=== PATIENT | female | born 1960 | race Caucasian/White ===

== ENCOUNTER → 2016-10-26 | Outpatient (CLI) | payer OTHER ==
[~2016-10-26] MED LIST: ACET-24 PO; ALBU18002 INH; ASPEC325 PO; ASPI81TA28 PO; ATOR-22 PO; CALC500C70 PO; CYM/30 PO; DULO60CA44 PO; FRRG PO; FRS/40 PO; MELO7.5T7 PO; METO25TA3 PO; MORP-157 PO; OMEP40CA PO; OXYC1TAB3 PO; PREG200C PO; RXC5 PO
--- NOTE | 2016-10-26 17:50 | DIAGNOSTIC IMAGING REPORT ---
CHEST 2 VIEWS ROUTINE CLINICAL HISTORY: PRE OP TESTING, WENT TO [facility], SEND TO [facility] COMPARISON STUDY: No previous studies for comparison. FINDINGS: The bones soft tissues and hemidiaphragms are normal. The cardiomediastinal silhouette is normal. The lungs are clear. The pulmonary vasculature is normal. IMPRESSION: Negative chest. Electronically signed by: Stuart Vera M.D. 10/26/2016 5:48 PM Dictated Date/Time: 10/26/2016 5:47 PM
== END | disposition home or self-care (01) ==
LOC: C.LAB 17:11
PROVIDERS: ATTEND Orthopaedic Surgery Sports Medicine
DX: Z01.812 Encounter for preprocedural laboratory examination (principal); Z01.810 Encounter for preprocedural cardiovascular examination

== ENCOUNTER 2017-01-10 06:30 | Inpatient (IN) | payer OTHER ==
[2016-10-18 14:17] VITALS: BMI 53.0
[2016-10-26 18:07] LABS: BASO % 0.6 %; BASO ABS # 0.04 K/uL (0-0.2); COMPLETE YES; EOS % 3.6 %; HEMATOCRIT 37.5 % (37-47); IG% 0.1 %; LYMPH % 39.1 %; LYMPH ABS # 2.68 K/uL (1.2-3.4); MEAN CELL VOLUME 89.7 fL (80-100); MEAN CORPUSCULAR HEMOGLOBIN 28.7 pg (25-34); MEAN PLATELET VOLUME 10.6 fL (7.4-10.4); MONO % 4.1 %; NEUT % 52.5 %; PLATELET COUNT 289 K/uL (130-400); RED BLOOD COUNT 4.18 M/uL (4.2-5.4); WHITE BLOOD COUNT 6.86 K/uL (4.8-10.8)
[2016-10-26 18:18] LABS: INR 0.9 (0.9-1.1); PROTHROMBIN TIME (PATIENT) 9.9 SECONDS (9.0-12.0)
[2016-10-26 18:35] LABS: BLOOD UREA NITROGEN 17 mg/dl (7-18); BUN/CREATININE RATIO 23.9 (10-20); CALCIUM 9.4 mg/dl (8.5-10.1); CARBON DIOXIDE 29 mmol/L (21-32); CHLORIDE 104 mmol/L (98-107); CREATININE 0.72 mg/dl (0.60-1.20); GLUCOSE 129 mg/dl (70-99); POTASSIUM 3.7 mmol/L (3.5-5.1); SODIUM 139 mmol/L (136-145)
[2016-10-26 18:36] LABS: C-REACTIVE PROTEIN 0.53 mg/dl (0-0.29)
--- NOTE | 2016-10-28 19:12 | HISTORY & PHYSICAL EXAMINATION ---
DATE OF ADMISSION: 11/04/2016 CHIEF COMPLAINT: Right knee pain. HISTORY OF PRESENT ILLNESS: A 56-year-old female, [place] who presents for surgical treatment of her right knee. She has got a long history of bilateral knee pain and discomfort. She has been through extensive conservative treatment. We had actually scheduled her for a right knee replacement in the past, but had to cancel due to some lower leg cellulitis. Since then, we treated that we have gone on to proceed with left knee replacement. She has done extremely well from that side. Very happy with the left knee. She has now become much more debilitated by her right knee. She has not had any cellulitis. She does have a chronic red hue to this leg which is present for years. She would now like to proceed with right knee replacement. She has limited walking to about a block at best. She uses a cane to get around. Of note, the patient does have a history of bilateral knee scopes in the past done by Dr. Pedro. She has difficulty with any weightbearing. She has nighttime pain. PAST MEDICAL HISTORY: Significant for: 1. Elevated cholesterol. 2. Asthma. 3. Superficial phlebitis/cellulitis. 4. Morbid obesity with a BMI of 53. 5. Back pain. PAST SURGICAL HISTORY: Include: 1. Herniorrhaphy. 2. Tonsillectomy. 3. x3. 4. Appendectomy. 5. Bilateral knee arthroscopy. 6. Left knee arthroplasty done in 05/06/2016. ALLERGIES: AMOXICILLIN, FLU SHOTS, EGGS. CURRENT MEDICINES: Include: 1. Lyrica 200 mg twice a day for fibromyalgia. 2. Atorvastatin 20 mg a day. 3. Duloxetine for fibromyalgia. 4. Metoprolol 25 mg a day. 5. Furosemide 40 mg a day. 6. Omeprazole 40 mg a day. SOCIAL HISTORY: This is a 56-year-old female patient from [place]. She works. Does not smoke. FAMILY HISTORY: Noncontributory. REVIEW OF SYSTEMS: Negative for diabetes, neurologic problems, vascular problems, bleeding disorders. Denies any chest pain, no shortness of breath. No history of DVT or PE. She does have the history of phlebitis and cellulitis. PHYSICAL EXAMINATION: GENERAL: Reveals a healthy pleasant, middle-aged female. Looks to be in reasonably good health. HEENT: Benign. NECK: Supple. No lymphadenopathy. LUNGS: Clear to auscultation. HEART: Regular rate and rhythm. ABDOMEN: Soft, nontender, nondistended. EXTREMITIES: Grossly neurovascularly intact except as follows: Examination of the right knee reveals the patient walks with an antalgic gait. She does well. She has got a large soft tissue envelope. She still does have a little red hue to the distal leg. No active cellulitis. Her range of motion is 0-90 at best. It is limited somewhat by soft tissues. She can do a straight leg raise. X-RAYS: X-rays of the right knee reviewed. It shows advanced right knee tricompartmental DJD. She has got complete loss of her medial joint space. She has tibial femoral subluxation. She does have some destruction of the medial tibial plateau. ASSESSMENT: A 56-year-old female status post a left knee replacement done in April with advanced right knee degenerative joint disease. She has multiple medical comorbidities and most significantly her obesity and the history of cellulitis. The cellulitis seems to be under control. She has got debilitating pain and would like to proceed with knee replacement. She is certainly at increased risk of infection and complications and she is aware of that and would like to proceed. PLAN: We are going to her to the operating room and do a right total knee replacement. The risks and benefits of this procedure were explained to the patient including but not limited to DVT, PE, , infection, neurological injury, vascular injury, bleeding problem, pain, limited range of motion, stiffness, failure to relieve symptoms, incomplete relief of symptoms, need for further surgery in the future, fracture, leg length inequality, nerve palsy, and most specifically infection. The patient understands and desires to proceed. Informed consent was obtained. She is fully aware of the increased risk of infection. Will likely use some antibiotics in her cement. We may need to use of stems and augments, depending on the quality of her bone. As far as discharge plans, she is planning to be discharged to home using [facility] home health program. I will see her back 2 weeks postop. RADHA
[2016-12-24 11:18] LABS: BASO % 0.4 %; BASO ABS # 0.02 K/uL (0-0.2); COMPLETE YES; EOS % 4.5 %; HEMATOCRIT 40.1 % (37-47); IG% 0.4 %; LYMPH % 34.1 %; LYMPH ABS # 1.84 K/uL (1.2-3.4); MEAN CELL VOLUME 91.1 fL (80-100); MEAN CORPUSCULAR HEMOGLOBIN 29.1 pg (25-34); MEAN CORPUSCULAR HGB CONC 31.9 g/dl (32-36); MEAN PLATELET VOLUME 10.6 fL (7.4-10.4); MONO % 6.1 %; NEUT % 54.5 %; PLATELET COUNT 271 K/uL (130-400); WHITE BLOOD COUNT 5.39 K/uL (4.8-10.8)
[2016-12-24 11:26] LABS: INR 0.9 (0.9-1.1); PROTHROMBIN TIME (PATIENT) 9.9 SECONDS (9.0-12.0)
[2016-12-24 11:44] LABS: BUN/CREATININE RATIO 24.2 (10-20); C-REACTIVE PROTEIN 0.64 mg/dl (0-0.29); CALCIUM 9.6 mg/dl (8.5-10.1); CREATININE 0.91 mg/dl (0.60-1.20); POTASSIUM 4.8 mmol/L (3.5-5.1)
[2017-01-02 15:24] VITALS: BMI 54.0
--- NOTE | 2017-01-05 12:37 | History and Physical ---
History & Physical Documentation Date Jan 05, 2017. Chief Complaint Right knee pain HPI (Knee Pain) Pain Location: Anterior knee, Posterior knee, Medial knee Duration: Years Adversely Affecting: ADL's, Work, Recreation Symptoms Include: + Catching, + Pain, + Giving way History of Injury/Trauma: Uncertain Non-Surgical Therapies: Behavior modification, Weight management, Exercise program Mechanical Assistive Devices: none Joint Injection: Steroid Prior Orthopedic Procedures: Arthroscopy Past Medical/Surgical History Elevated CHolesterol Asthma Superfiscial phlebitis Obesity - BMI=53 Pack Pain Herniorrhaphy Tonsillectomy Appendectomy Bilateral knee arthroscopy Left TKR - 05/06/2016 Additional History Hepatic Disease: No Endocrine Disorder: No Kidney Disease: No Hypertension: No Heart Disease: No Bleeding Tendencies: No Infectious Diseases: No Family History No Heart disease, No Pulmonary disease, No Anesthesia difficulties, No Bleeding tendencies Social History Smoking Status: Never Smoker Smokeless Tobacco Use: No Drug Use: none Occupational Status: employed Allergies Coded Allergies: Amoxicillin (Verified Allergy, Mild, RASH, 01/02/17) Egg (Verified Allergy, Mild, RASH, 01/02/17) Flu Virus Vaccine (Verified Allergy, Mild, RASH, 01/02/17) Meperidine (Verified Allergy, Mild, HALLUCINATION, 01/02/17) Hatch (Unverified Allergy, Unknown, CITRUS [id number]-[id number] MUCH-RASH, ) Tramadol (Verified Adverse Reaction, Mild, "Messes with my head", 01/02/17) Home Medications Scheduled Aspirin (Aspirin Ec), 81 MG PO HS Atorvastatin (Lipitor), 20 MG PO QAM Calcium/Vitamin D (Os-Atif 500 Plus D), 1 TAB PO QAM Duloxetine HCl (Cymbalta), 1 CAP PO QAM Duloxetine Hcl (Cymbalta), 60 MG PO QAM Meloxicam (Mobic), 7.5 MG PO QAM Metoprolol Succ (Toprol Xl) (Toprol-Xl), 25 MG PO QAM Omeprazole (Prilosec), 40 MG PO AM Pregabalin (Lyrica), 200 MG PO BID Scheduled PRN Albuterol Sulfate (Proair Respiclick), 2 PUFFS INH DIRECTED PRN for WHEEZING Furosemide (Lasix), 40 MG PO QAM PRN for PRN Oxycodone Ir (Roxicodone Ir), 5 MG PO Q4H PRN for Severe Pain Review of Systems Constitutional: No fever, No chills, No sweats, No weight loss, No weakness, No fatigue, No problem reported Respiratory: No cough, No sputum, No wheezing, No shortness of breath, No dyspnea on exertion, No dyspnea at rest, No hemoptysis, No problem reported Cardiovascular: No chest pain, No orthopnea, No PND, No edema, No claudication , No palpitations, No problem reported Abdomen: No pain, No nausea, No vomiting, No diarrhea, No constipation, No GI bleeding, No problem reported Musculoskeletal: + joint pain, + muscle pain Genitourinary - Female: No dysuria, No urinary frequency, No urinary urgency, No urinary incontinence, No urinary retention, No hematuria, No dysmenorrhea, No menorrhagia, No metrorrhagia, No rash, No vaginal bleeding, No vaginal discharge, No vaginal itching, No vulvodynia, No , No problem reported Neurologic: No memory loss, No paralysis, No weakness, No numbness/tingling, No vertigo, No balance problems, No problem reported Physical Exam Skin: warm/dry Eyes: normal inspection ENT: normal ENT inspection Head: normocephalic Neck: supple, no adenopathy Respiratory/Chest: lungs clear Cardiovascular: regular rate, rhythm Abdomen / GI: non tender Back: normal inspection Neurovascular: Warm, Dry, Normal perfusion, Normal pedal pulses, Normal sensation, Normal motor strength Neurologic/Psych: no motor/sensory deficits Physical Exam (Knee) Inspection: + Effusion Gait: + Limp, + Antalgic Range of Motion: With crepitation (ROM=0-90 degrees) Alignment: + Genu varum Stability: No Camron, No Anterior drawer, No Varus laxity, No Rotational laxity, No Posterior drawer, No Valgus laxity, No pertinent finding Tenderness: Medial joint line, Suprapatellar, Popliteal space Radiology Plain Films: Osteophytes, Subchondral sclerosis, Subluxation Diagnosis & Plan Diagnosis & Plan (1) Right Knee DJD Plan: TKA Right TKR.
[~2017-01-10] VITALS: Ht 154.9 cm; Wt 129.6 kg
[2017-01-10] VITALS (9 sets, daily range): BP systolic 98–156; BP diastolic 61–93; PULSE 95–106; TEMP 36.6–37.1; O2SAT 92–99; Ht 154.9 cm; Wt 129.6 kg
[~2017-01-10 06:30] MED LIST changes: -ACET-24 PO; +ACETAMINOPHEN 500 MG TAB PO SCH; -ASPEC325 PO; +BUPIVACAINE LIPOSOME 266 MG, BUPIVACAINE/EPINEPHRINE INJ 50 ML, SODIUM CHLORIDE 0.9% PF... INFIL SCH; +CEFAZOLIN 3000 MG/65 ML D5W IV SCH; +CHECK SCOPOLAMINE PATCH PLACEMENT SCH; +FAMOTIDINE 20 MG TAB PO SCH; -FRRG PO; +GABAPENTIN 300 MG CAP PO SCH; +LACTATED RINGER'S 1000ML 1,000 ML IV SCH; +LACTATED RINGER'S 1000ML 500 ML IV ONE; +LACTATED RINGER'S 1000ML IV SCH; +LACTATED RINGER'S 500 ML IV SCH; +METOCLOPRAMIDE HCL 10 MG TAB PO SCH; -MORP-157 PO; -RXC5 PO; +SCOPOLAMINE 1.5 MG TDSY TD SCH; +TRANEXAMIC ACID INJ 1,000 MG in SODIUM CHLORIDE 0.9% 100ML 100 ML IV SCH
[2017-01-10] MEDS ORDERED: BUPIVACAINE 0.5 % 5 MG/1 ML PF 10ML VIAL ONE (06:38)
[2017-01-10] MEDS ORDERED: BUPIVACAINE/EPINEPHRINE 0.25% 10 ML VIAL ONE ×3 (06:39→08:52)
[2017-01-10] MEDS ORDERED: DEXAMETHASONE SOD INJ 4 MG/ML VIAL ONE (06:40)
--- NOTE | 2017-01-10 06:49 | History & Physical Bridge Note ---
H&P Re-Evaluation Bridge Note: I have examined the patient, reviewed the History & Physical and in the interval since the performance of the History & Physical I have noted the following changes of clinical significance: No changes noted
[2017-01-10] MEDS ORDERED: ONDANSETRON INJ 2 MG/ML 2 ML VIAL ONE (07:16)
[2017-01-10] MEDS ORDERED: PROPOFOL IV EMULSION 10 MG/ML 20 ML VIAL IV ONE (07:16)
[2017-01-10] MEDS ORDERED: FENTANYL CITRATE INJ 50 MCG/1 ML 2 ML VIAL ONE (07:16)
[2017-01-10] MEDS ORDERED: MIDAZOLAM HCL 1 MG/ML 2ML VIAL ONE ×2 (07:16→09:00)
[2017-01-10] MEDS ORDERED: BUPIVACAINE LIPOSOME 1/3% 266 MG/20 ML VIAL INFIL ONE (08:34)
[2017-01-10] MEDS ORDERED: SODIUM CHLORIDE 0.9% PF 50 ML VIAL ONE (08:34)
[2017-01-10] MEDS ORDERED: BACITRACIN 50000 UNIT VIAL ONE (08:34)
[2017-01-10] MEDS ORDERED: VANCOMYCIN HCL 1000MG/20ML VIAL ONE (08:35)
[2017-01-10] MEDS ORDERED: PROMETHAZINE HCL INJ 6.25 MG in SODIUM CHLORIDE 0.9% 50ML 50 ML IV PRN (09:00)
[2017-01-10] MEDS ORDERED: ONDANSETRON INJ 2 MG/ML 2 ML VIAL IV PRN ×2 (09:00→11:00)
[2017-01-10] MEDS ORDERED: EpHEDrine SULFATE INJ 50 MG/ML AMP IV PRN (09:00)
[2017-01-10] MEDS ORDERED: DiphenhydrAMINE HCL 50 MG/ML VIAL ONE (09:00)
[2017-01-10] MEDS ORDERED: ATROPINE SULFATE 0.1 MG/ML 5ML SYR IV PRN (09:00)
[2017-01-10] MEDS ORDERED: KETAMINE HCL INJ 50 MG/ML 10 ML VIAL ONE (09:06)
[2017-01-10] MEDS ORDERED: WATER, STERILE FOR INJ 10 ML VIAL ONE (09:06)
[2017-01-10] MEDS ORDERED: METOPROLOL TARTRATE 1 MG/ML VIAL ONE (09:30)
--- NOTE | 2017-01-10 10:56 | [facility] Post Operative Brief Note ---
Immediate Operative Summary Operative Date Jan 10, 2017. Pre-Operative Diagnosis Right knee degenerative joint disease Post-Operative Diagnosis Same as preop Procedure(s) Performed Right total knee arthroplasty Surgeon Dr. Salgado Powder Cutting Operator Surgeon(s) Lillie Santana PA-C Estimated Blood Loss 50 cc Findings Right Knee DJD Fluids (cc crystalloids) 1300 cc Specimens A: right knee bone and tissue Drains None Anesthesia Spinal Complication(s) None Disposition Recovery Room / PACU
[2017-01-10] MEDS ORDERED: METOCLOPRAMIDE HCL INJ 5 MG/ML 2 ML VIAL IV PRN (11:00)
[2017-01-10] MEDS ORDERED: BISACODYL 10 MG SUPP PR PRN (11:00)
[2017-01-10] MEDS ORDERED: NON-FORMULARY MEDICATION (Omeprazole (Prilosec) 40 MG) PO SCH (11:00)
[2017-01-10] MEDS ORDERED: FUROSEMIDE 40 MG TAB PO PRN (11:00)
[2017-01-10] MEDS ORDERED: MoRPHine SULFATE 2 MG/ML CARP IV PRN (11:00)
[2017-01-10] MEDS ORDERED: ZOLPIDEM TARTRATE 5 MG TAB PO PRN (11:00)
[2017-01-10] MEDS ORDERED: ALUMINUM/MAGNESIUM/SIMETH (MAALOX MAX) 30 ML UDC PO PRN (11:00)
[2017-01-10] MEDS ORDERED: SILVER SULFADIAZINE 1% CR 50 GM JAR EXT PRN (11:00)
[2017-01-10] MEDS ORDERED: NON-FORMULARY MEDICATION (Albuterol Sulfate (Proair Respiclick) 2 PUFFS) INH PRN (11:00)
[2017-01-10] MEDS ORDERED: MAGNESIUM HYDROXIDE SUSP 30 ML UDC PO PRN (11:00)
[2017-01-10] MEDS ORDERED: DiphenhydrAMINE HCL 50 MG/ML VIAL IV PRN (11:00)
[2017-01-10] MEDS: FENTANYL CITRATE INJ 50 MCG/1 ML 2 ML VIAL IV PRN ×2 (11:40→11:46)
--- NOTE | 2017-01-10 11:55 | DIAGNOSTIC IMAGING REPORT ---
RIGHT KNEE 1 OR 2 VIEWS ROUTINE CLINICAL HISTORY: Postoperative evaluation. COMPARISON: Knee radiograph January 18, 2016. FINDINGS: Alignment of the total right knee arthroplasty is anatomic. There is no fracture or unexpected radiopaque foreign body. Skin dwight are present. IMPRESSION: Expected findings following total right knee arthroplasty. Electronically signed by: Osorio Tobar M.D. 01/10/2017 11:54 AM Dictated Date/Time: 01/10/2017 11:44 AM
--- NOTE | 2017-01-10 12:56 | Anesthesiology Progress Note ---
Anesthesia Post Op Note Date & Time Jan 10, 2017 at 12:56 Vital Signs Pain Intensity: 0.0 Vital Signs Past 12 Hours Date Time Temp Pulse Resp B/P (MAP) Pulse Ox O2 Delivery O2 Flow Rate FiO2 01/10/17 12:32 Nasal Cannula 2.0 01/10/17 12:15 37.1 99 18 110/72 (85) 99 Nasal Cannula 2.0 01/10/17 12:00 36.5 96 14 115/79 95 Nasal Cannula 2 01/10/17 11:36 99/53 01/10/17 11:35 93 14 96 01/10/17 11:35 95 14 01/10/17 11:31 100/55 01/10/17 11:30 92 15 96 01/10/17 11:30 92 15 01/10/17 11:26 102/55 01/10/17 11:25 91 14 01/10/17 11:25 92 14 97 01/10/17 11:21 104/55 01/10/17 11:20 92 13 97 01/10/17 11:20 92 13 01/10/17 11:19 93 16 01/10/17 11:19 93 16 98 01/10/17 11:16 94/52 01/10/17 11:14 97 16 98 01/10/17 11:14 98 16 01/10/17 11:12 87/48 01/10/17 11:09 94 14 98 01/10/17 11:09 94 14 01/10/17 11:05 111/56 01/10/17 11:04 36.1 96 14 111/56 100 Mask 10 01/10/17 11:04 98 14 01/10/17 11:04 97 14 100 01/10/17 06:51 36.7 96 20 156/93 96 Room Air Notes Mental Status: alert / awake / arousable, participated in evaluation Pt Amnestic to Procedure: Yes Nausea / Vomiting: adequately controlled Pain: adequately controlled Airway Patency, RR, SpO2: stable & adequate BP & HR: stable & adequate Hydration State: stable & adequate Neuraxial Anesthesia: was administered, sensory block is resolving Anesthetic Complications: no major complications apparent
--- NOTE | 2017-01-10 12:57 | OPERATIVE REPORT ---
DATE OF OPERATION: 01/10/2017 PREOPERATIVE DIAGNOSIS: Right knee degenerative joint disease. POSTOPERATIVE DIAGNOSIS: Same. PROCEDURE PERFORMED: Right cemented posterior stabilized total knee arthroplasty. SURGEON: Steve Salgado M.D. SEASONAL SALES ASSOCIATE: Lalo Santana PA-C. COMPLICATIONS: None. ESTIMATED BLOOD LOSS: 50 mL. FLUID REPLACEMENT: 1300 mL crystalloid fluid replacement. ANESTHESIA: Spinal with adductor canal block. DRAINS: None. SPECIMENS: Right knee sent for pathology. TOURNIQUET TIME: 71 minutes at 350 mmHg. OPERATIVE INDICATIONS: The patient is a 56-year-old female who has had a long history of bilateral knee pain and discomfort. She has been through extensive conservative treatment over the past several years. He has got to the point where she has had difficulty getting around. She had a left knee replaced 8 months ago and has done remarkably well from that. She elected to proceed with right total knee arthroplasty. OPERATIVE FINDINGS: Operative findings revealed advanced right knee DJD. She had extensive grade 4 changes in all 3 compartments with complete cartilage loss, eburnation, and multiple osteophytes. She had a very large soft tissue envelope with a BMI of 53. This made the surgery significantly more difficult. OPERATIVE IMPLANTS: Operative implants consisted of: 1. Biomet Vanguard size 62.5 right posterior stabilized femoral component. 2. Biomet size 67 tibial tray. 3. A 10 mm posterior stabilized polyethylene insert. 4. A 28 x 8 all poly patella. OPERATIVE PROCEDURE: The patient taken to the operating room, identified and placed on operative table in supine position. All contact areas were appropriately padded. IV antibiotics were provided by anesthesia team. A spinal anesthetic and adductor canal block had been provided in the holding area. Painter catheter was placed in sterile fashion. Right thigh tourniquet was then placed and the right lower extremity was then prepped and draped in the usual sterile fashion. The right leg was elevated and exsanguinated with Esmarch and tourniquet was placed at 350 mmHg. An anterior approach to the right knee was then performed through a longitudinal incision centered over the patella. Sharp dissection was carried out through the subcutaneous tissues down to the level of the extensor mechanism. A medial parapatellar arthrotomy incision was made. Some subperiosteal dissection was carried out medially. The fat pad was resected from beneath the patellar tendon. Lateral patellofemoral ligament was released. The patella was subluxated laterally due to her large size and the knee was flexed. The osteophytes were taken off the distal femur. The ACL and PCL were then released from the distal femur and the tibia subluxated anteriorly. Due to her large size and varus deformity, I elected to use the IM cutting guide for the tibia. The tibial eminence was excised. The IM guide was then placed down the canal and the tibial cutting guide was attached to the IM guide and adjusted to take 2 mm off the most deficient aspect of the medial tibial plateau. The tibial cut was made. Some osteophytes were removed medially and posteromedially. The tibia was sized to a size 67. Attention was then drawn to the femur. The distal femur was entered with a sharp drill bit. Intramedullary canal was suctioned. A right 5 degree valgus cutting guide was placed. Distal femoral cutting block was pinned in place. Distal femoral cut was made to take an additional 3 mm of bone off the distal femur. The femur was then sized to a size 62.5. The AP cutting block was pinned parallel to the epicondylar axis, which was 4 degrees of external rotation. The anterior cut, anterior chamfer, posterior cut, posterior chamfer cuts were made. Box cutting guide was placed and adjusted slightly lateral and the box cut was made. The knee was flexed. The remnants of the medial and lateral menisci were excised. The osteophytes were taken off the posterior aspect of the femur. Trial femoral component was placed. Tibial tray was pinned in maximum external rotation and the drill and stem punch were used to create defect in proximal tibia for the tibial tray. The knee was then trialed and the 10 mm insert fit most appropriately. Attention was then drawn to the patella. The patella was cleaned of all soft tissues. Patella thickness measured 18 mm, cut down to 12. It was sized to a size 28 patella. Lug holes were drilled for the 28 patella. Lateral osteophyte was removed. Patella button was placed. Knee was taken through range of motion and the patella tracked nicely with no thumbs test. Attention was then drawn toward placement of permanent components. All trial components were removed. A bone plug was placed in the distal femur to limit blood loss. We also placed some bone down through the tibial canal to prevent cement extravasation down the tibia. A double batch of Palacos G cement was mixed with an additional gram of vancomycin. A 62.5 posterior stabilized femoral component, 67 tibial tray, 10 mm posterior stabilized polyethylene insert, 28 x 8 all poly patella were then cemented in place. Knee was brought out into full extension until cement hardened. A final cement check was then performed. Pericapsular tissues were injected with 100 mL of a combination of 20 mL of Exparel, 30 mL of normal saline, 50 mL of 0.25% Marcaine with epinephrine. The patient did receive 1 gram of tranexamic acid. The tourniquet was then let down for final tourniquet time 71 minutes. Hemostasis was assured with use of electrocautery. The wound was once again irrigated. The extensor mechanism was then closed with a combination of #1 PDS suture and #1 Vicryl suture in a [id number] fashion. Extensor mechanism was checked and found to be intact. The subcutaneous tissues were then closed with 2-0 Dexon suture in a buried interrupted fashion. Skin was closed skin dwight. Leg ligament cleaned and dried and a sterile dressing of Xeroform, 4 x 4's, sterile cast padding and Aldo bandage were applied. The patient then transferred to the recovery room in stable condition. The patient tolerated the procedure with no complications. All needle and sponge counts were correct at the end of the operation. I attest to the content of the Intraoperative Record and any orders documented therein. Any exception s are noted below.
[2017-01-10] MEDS: D5W AND 1/2NSS + 20MEQ KCL 1,000 ML IV SCH ×2 (13:38→20:39)
[2017-01-10] MEDS: KETOROLAC TROMETHAMINE 30 MG/ML VIAL IV. SCH ×2 (13:39→20:41)
[2017-01-10] MEDS: OXYCODONE HCL IR 5 MG TAB (IMMEDIATE RELEASE) PO PRN ×2 (13:39→18:33)
--- NOTE | 2017-01-10 14:01 | PROGRESS NOTE ---
DATE: 01/10/2017 SUBJECTIVE: A 56-year-old female postop from a right knee replacement. She is doing well. Minimal pain. No chest pain or shortness of breath. Not feeling dizzy or lightheaded. OBJECTIVE: VITAL SIGNS: Temperature 37.1. Vital signs stable. GENERAL: Physical examination reveals a healthy, pleasant middle-aged female. She is sitting up in her bed and talking to her family. Looks pretty comfortable. LUNGS: Clear to auscultation. HEART: Regular rate and rhythm. ABDOMEN: Soft, nontender, and nondistended. EXTREMITIES: Grossly neurovascularly intact except as follows: Examination of the right leg reveals the leg to be well aligned. Dressing is clean, dry and intact. She can dorsiflex and plantarflex her foot appropriately. She is neurologically intact. X-RAYS: X-rays of the right knee from the recovery room reviewed. It shows a right cemented posterior stabilized total knee arthroplasty. Components looked to be in good position. No signs of problems. ASSESSMENT: A 56-year-old female postop from a right knee replacement, doing well. Pain is controlled. She is neurologically intact. PLAN: 1. DVT prophylaxis including thigh-high TEDs, SCDs, and aspirin twice a day. 2. PT/OT. Weightbearing as tolerated. Right total knee protocol. 3. Pain control. Doing well with current pain regimen. 4. IV antibiotics x24 hours. 5. Disposition: Plan to discharge to home with some home health once adequately recovered.
[2017-01-10] MEDS: CHECK SCOPOLAMINE PATCH PLACEMENT SCH ×2 (16:00→23:42)
[2017-01-10] MEDS ORDERED: TRANEXAMIC ACID INJ 1,000 MG in SODIUM CHLORIDE 0.9% 100ML 100 ML IV SCH (17:00)
[2017-01-10] MEDS: FERROUS GLUCONATE 324 MG TAB PO SCH (18:30)
[2017-01-10] MEDS: CEFAZOLIN IV 2,000 MG in DEXTROSE 5% 50ML 50 ML IV SCH (18:34)
[2017-01-10] MEDS: ASPIRIN 325 MG ECTAB PO SCH (20:39)
[2017-01-10] MEDS: TAPENTADOL ER 50 MG TABCR PO SCH (20:40)
[2017-01-10] MEDS: PREGABALIN 100 MG CAP PO SCH (20:40)
[2017-01-10] MEDS: DOCUSATE SODIUM 100 MG CAP PO SCH (20:40)
[2017-01-10] MEDS: SENNA 8.6 MG TAB PO SCH (20:40)
[2017-01-10] MEDS: ACETAMINOPHEN 500 MG TAB PO SCH (22:06)
[2017-01-11 03:00] VITALS: BP 119/71; PULSE 87; TEMP 37; O2SAT 95
[2017-01-11] MEDS: KETOROLAC TROMETHAMINE 30 MG/ML VIAL IV. SCH ×4 (03:01→20:27)
[2017-01-11] MEDS: CEFAZOLIN IV 2,000 MG in DEXTROSE 5% 50ML 50 ML IV SCH (03:01)
[2017-01-11] MEDS: D5W AND 1/2NSS + 20MEQ KCL 1,000 ML IV SCH ×2 (03:02→10:18)
[2017-01-11] MEDS: ACETAMINOPHEN 500 MG TAB PO SCH ×3 (05:52→21:39)
[2017-01-11] MEDS: OXYCODONE HCL IR 5 MG TAB (IMMEDIATE RELEASE) PO PRN ×4 (05:53→21:39)
[2017-01-11 06:17] LABS: HEMATOCRIT 34.7 % (37-47); MEAN CELL VOLUME 92.5 fL (80-100); MEAN CORPUSCULAR HEMOGLOBIN 30.4 pg (25-34); MEAN CORPUSCULAR HGB CONC 32.9 g/dl (32-36); MEAN PLATELET VOLUME 9.9 fL (7.4-10.4); PLATELET COUNT 260 K/uL (130-400); RED BLOOD COUNT 3.75 M/uL (4.2-5.4)
[2017-01-11 06:49] LABS: BUN/CREATININE RATIO 17.5 (10-20); CALCIUM 8.5 mg/dl (8.5-10.1); CREATININE 0.77 mg/dl (0.60-1.20); POTASSIUM 4.3 mmol/L (3.5-5.1)
[2017-01-11] MEDS: CHECK SCOPOLAMINE PATCH PLACEMENT SCH ×2 (07:40→16:00)
[2017-01-11 07:55] VITALS: BP 134/82; PULSE 80; TEMP 36.8; O2SAT 97
[2017-01-11 07:58] VITALS: O2SAT 97
[2017-01-11] MEDS: CALCIUM 600MG + VIT D 400 IU TAB PO SCH (08:45)
[2017-01-11] MEDS: FERROUS GLUCONATE 324 MG TAB PO SCH ×3 (08:45→17:47)
[2017-01-11] MEDS: DOCUSATE SODIUM 100 MG CAP PO SCH ×2 (08:45→20:48)
[2017-01-11] MEDS: DULOXETINE (CYMBALTA) 30 MG CAP PO SCH (08:46)
[2017-01-11] MEDS: DULOXETINE HCL 60 MG CAP PO SCH (08:46)
[2017-01-11] MEDS: ATORVASTATIN 20 MG TAB PO SCH (08:46)
[2017-01-11] MEDS: ASPIRIN 325 MG ECTAB PO SCH ×2 (08:46→20:48)
[2017-01-11] MEDS: MULTIVITAMIN TAB PO SCH (08:47)
[2017-01-11] MEDS: PANTOprazole SOD 40 MG TAB PO SCH (08:47)
[2017-01-11] MEDS: METOPROLOL SUCC 25MG EXT REL TAB PO SCH (08:48)
[2017-01-11] MEDS: PREGABALIN 100 MG CAP PO SCH ×2 (08:50→20:47)
[2017-01-11] MEDS: TAPENTADOL ER 50 MG TABCR PO SCH ×2 (08:50→20:47)
--- NOTE | 2017-01-11 10:19 | Anesthesiology Progress Note ---
Anesthesia Post Op Note Date & Time Jan 11, 2017 at 10:19 Vital Signs Vital Signs Past 12 Hours Date Time Temp Pulse Resp B/P (MAP) Pulse Ox O2 Delivery O2 Flow Rate FiO2 01/11/17 07:58 97 Room Air 01/11/17 07:55 36.8 80 16 134/82 (99) 97 Room Air 01/11/17 07:45 Room Air 01/11/17 03:00 37.0 87 16 119/71 (87) 95 Room Air 01/10/17 23:40 Room Air 01/10/17 22:56 36.9 104 18 107/68 (81) 95 Room Air Notes Mental Status: alert / awake / arousable, participated in evaluation Pt Amnestic to Procedure: Yes Nausea / Vomiting: adequately controlled Pain: adequately controlled Airway Patency, RR, SpO2: stable & adequate BP & HR: stable & adequate Hydration State: stable & adequate Neuraxial Anesthesia: sensory block resolved Anesthetic Complications: no major complications apparent
[2017-01-11 12:00] VITALS: BP 113/78; PULSE 70; TEMP 36.9; O2SAT 97
--- NOTE | 2017-01-11 12:22 | Orthopedic Progress Note ---
Orthopedic Progress Note Date of Service Jan 11, 2017. Subjective Post OP Day: 1 Additional Notes: DOING WELL. PAIN CONTROLLED. NO OTHER COMPLAINTS Objective N/V intact, dressing C/D/I, toes mobile Date Time Temp Pulse Resp B/P (MAP) Pulse Ox O2 Delivery O2 Flow Rate FiO2 01/11/17 07:58 97 Room Air 01/11/17 07:55 36.8 80 16 134/82 (99) 97 Room Air 01/11/17 07:45 Room Air 01/11/17 03:00 37.0 87 16 119/71 (87) 95 Room Air 01/10/17 23:40 Room Air 01/10/17 22:56 36.9 104 18 107/68 (81) 95 Room Air 01/10/17 18:55 37.1 105 16 117/71 (86) 95 Nasal Cannula 2.0 01/10/17 16:40 92 Nasal Cannula 2.0 01/10/17 15:15 106 16 118/71 (87) 01/10/17 14:15 95 18 116/69 (85) 92 01/10/17 13:15 96 16 109/67 (81) 93 01/10/17 12:45 36.6 98 16 98/61 (73) 96 01/10/17 12:32 Nasal Cannula 2.0 Laboratory Results 24 Hours: Test 01/11/17 06:04 Hematocrit 34.7 % Hemoglobin 11.4 g/dL Assessment & Plan Assessment: POD #1 R TKA Discharge Planning Discharge Planning: home (PLAN FOR LIKELY DISCHARGE HOME TOMORROW AND OUTPATIENT PT ) Pain Management: other (PAIN CONTROLLED ) DVT Prophylaxis: TEDs, SCDs, ASA Therapy: Physical Therapy
[2017-01-11] MEDS ORDERED: ALBUTEROL HFA INHALER 18 GM INH PRN (15:30)
[2017-01-11] MEDS ORDERED: NURSING VERBAL MED ORDER ONE (15:30)
[2017-01-11 15:37] VITALS: BP 119/76; PULSE 79; TEMP 36.7; O2SAT 99
[2017-01-11] MEDS ORDERED: ASPEC325 PO (20:37)
[2017-01-11] MEDS ORDERED: ACET-24 PO (20:37)
[2017-01-11] MEDS ORDERED: MORP-157 PO (20:37)
[2017-01-11] MEDS ORDERED: RXC5 PO (20:37)
--- NOTE | 2017-01-11 20:40 | Discharge Instructions ---
Discharge Instructions Date of Service Jan 11, 2017. Admission Reason for Admission: Right Knee Degenerative Joint Disease Discharge Discharge Diagnosis / Problem: Right Knee Replacement Discharge Goals Goal(s): Decrease discomfort, Improve function, Increase independence, Improve disease control, Therapeutic intervention Activity Recommendations Activity Limitations: per Instructions/Follow-up section . Instructions / Follow-Up Instructions / Follow-Up ACTIVITY RECOMMENDATIONS: Physical Therapy: * You will go to physical therapy three times each week for four to six weeks after your surgery in order to regain your knee range of motion and to retrain your knee to work properly. * It is just as important to make sure you are getting your knee perfectly straight as it is to regain your knee bend. * Taking a pain pill an hour before therapy can help you have a more productive and comfortable therapy session. Home Exercise: * You were shown a series of exercises (heel props, heel slides, etc.) in the hospital. Do these exercises three to four times each day including the exercises you were shown in physical therapy. Walking: * Get up and walk several times each day. For the first four weeks, try not to stand or walk for more than one hour at a time. If you do stand or walk for more than one hour, you will not hurt anything, but your knee and leg will likely swell. * As you feel comfortable, you may change from the walker or crutches to a cane and then to independent walking. MEDICATIONS: New Medicine: * You will likely be taking one or more of these medications: 1. MS Contin - A long-acting pain medication. Take 1 tablet twice a day for the first ten days to decrease your baseline level of pain. 2. Oxycodone - A quick and shorter-acting pain medication. Take one to two tablets every four to six hours to lessen your pain. 3. Aspirin - Thins your blood to lessen the chance of forming a blood clot. * The most common side effects of pain medicine and iron are nausea and constipation. If nausea or constipation is too much of a problem or if you have any questions about your new medicines or doses, call [facility] at . We will try to help you manage these issues. VERY IMPORTANT TO READ AND REVIEW" Pain: * The immediate post-operative period after knee replacement surgery is often quite painful. * You are given a prescription for pain medicine. You should take it, as directed, when you need it, especially before physical therapy and before going to bed. Pain that interferes with sleep is very common and can last several months. * You will likely need pain medicine for the first four to six weeks. It will not stop all of the pain. The pain will lessen and as you feel better, you may change to milder pain medicine such as Tylenol. * The most common side effects of pain medicine are nausea and constipation, so don't take more than you need. SPECIAL CARE INSTRUCTIONS: TEDs/Elastic Stockings: * The white elastic stockings help limit swelling and prevent blood clots from forming in your legs. The more you wear them, the more they work. * Wear them for six weeks after knee replacement surgery and four weeks after partial knee replacement. Prevention of Infection: * Take antibiotics one hour before any dental cleaning, dental work, urological procedure, gastrointestinal procedure or any invasive surgery in order to prevent your new joint from getting infected. * You may get the antibiotics from the doctor performing the procedure or you may call our office at before and we will call in a prescription to the pharmacy of your choice. Things to Watch For: * Drainage from the incision site that occurs more than one week after your surgery. * Severely increased knee/leg pain or swelling. * Increased redness at the incision site. * Fever above 102 degrees Fahrenheit. * Unusual chest pain or shortness of breath. * Unusual pain or burning with urination. Call [facility] at with any of the above problems or if you have any questions about your medicines or recovery. FOLLOW UP VISIT: Make an appointment to see your doctor for approximately two weeks after surgery for a progress check and staple removal by calling the office at . Current Hospital Diet Patient's current hospital diet: Regular Diet Discharge Diet Recommended Diet: Regular Diet Procedures Procedures Performed: Right total knee arthroplasty Pending Studies Studies pending at discharge: no Medical Emergencies . Who to Call and When: Medical Emergencies: If at any time you feel your situation is an emergency, please call [phone] immediately. . Non-Emergent Contact Non-Emergency issues call your: Surgeon . "Provider Documentation" section prepared by Steve Salgado. . VTE Core Measure Inpt VTE Proph given/why not?: Other Anticoagulation, T.E.D. Stockings, SCD's
[2017-01-11] MEDS: SENNA 8.6 MG TAB PO SCH (20:47)
[2017-01-11 23:35] VITALS: BP 99/67; PULSE 86; TEMP 36.9; O2SAT 94
[2017-01-12] MEDS: CHECK SCOPOLAMINE PATCH PLACEMENT SCH (00:18)
[2017-01-12] MEDS: KETOROLAC TROMETHAMINE 30 MG/ML VIAL IV. SCH ×2 (01:40→07:34)
[2017-01-12] MEDS: ACETAMINOPHEN 500 MG TAB PO SCH (05:42)
[2017-01-12] MEDS: FERROUS GLUCONATE 324 MG TAB PO SCH (08:40)
[2017-01-12] MEDS: DULOXETINE (CYMBALTA) 30 MG CAP PO SCH (08:41)
[2017-01-12] MEDS: ASPIRIN 325 MG ECTAB PO SCH (08:41)
[2017-01-12] MEDS: ATORVASTATIN 20 MG TAB PO SCH (08:41)
[2017-01-12] MEDS: DOCUSATE SODIUM 100 MG CAP PO SCH (08:41)
[2017-01-12] MEDS: CALCIUM 600MG + VIT D 400 IU TAB PO SCH (08:41)
[2017-01-12] MEDS: METOPROLOL SUCC 25MG EXT REL TAB PO SCH (08:41)
[2017-01-12] MEDS: DULOXETINE HCL 60 MG CAP PO SCH (08:41)
[2017-01-12] MEDS: PANTOprazole SOD 40 MG TAB PO SCH (08:41)
[2017-01-12] MEDS: MULTIVITAMIN TAB PO SCH (08:42)
[2017-01-12] MEDS: TAPENTADOL ER 50 MG TABCR PO SCH (08:42)
[2017-01-12] MEDS: OXYCODONE HCL IR 5 MG TAB (IMMEDIATE RELEASE) PO PRN (08:42)
[2017-01-12] MEDS: PREGABALIN 100 MG CAP PO SCH (08:45)
[2017-01-12 08:47] VITALS: BP 114/74; PULSE 86; TEMP 36.6; O2SAT 97
[2017-01-12 08:51] VITALS: O2SAT 97
[2017-01-12 09:01] VITALS: BP 114/74; PULSE 86; TEMP 36.6; O2SAT 97
--- NOTE | 2017-01-12 16:00 | PROGRESS NOTE ---
DATE: 01/12/2017 SUBJECTIVE: A 56-year-old white female postop day 2 from right knee replacement. She is doing pretty well. She is sore but very manageable. No chest pain or shortness of breath. Not feeling dizzy or lightheaded. OBJECTIVE: VITAL SIGNS: Temperature 36.6. Vital signs stable. PHYSICAL EXAMINATION: GENERAL: Reveals a healthy pleasant, middle-aged female. I had to wake her this morning. She appears reasonably comfortable. EXTREMITIES: Examination of the right leg reveals the dressing to be clean, dry and intact. Leg is well aligned. She can dorsiflex and plantarflex her foot appropriately. She is neurologically intact. ASSESSMENT: A 56-year-old white female postop day 2 from a right knee replacement, doing pretty well. Pain is controlled. She is neurologically intact. PLAN: 1. DVT prophylaxis including thigh-high TEDs, SCDs, and aspirin twice a day. 2. PT/OT. Weightbearing as tolerated. Right total knee protocol. 3. Pain control, doing pretty well with current pain regimen. 4. Disposition: She is to be discharged to home. She is going to do outpatient therapy.
--- NOTE | 2017-01-25 13:05 | DISCHARGE SUMMARY ---
ADMITTING PHYSICIAN AND SURGEON: Dr. Salgado. ADMITTING DIAGNOSIS: Right knee degenerative joint disease. SURGERY PERFORMED: Right total knee arthroplasty. SECONDARY DIAGNOSES: Includes elevated cholesterol, asthma, superficial phlebitis, obesity, back pain, herniorrhaphy, tonsillectomy, , appendectomy, bilateral knee arthroscopy, left total knee replacement. CONSULTS: None obtained. HISTORY AND PHYSICAL EXAMINATION: Well documented in patient's chart. HOSPITAL COURSE: The patient was admitted on 01/10/2017 underwent total knee arthroplasty, tolerated the procedure well. There were no complications. She was transferred to PACU postoperatively and later to the orthopedic floor for further care. She was given Ancef for antibiotic prophylaxis, SMITHA stockings, SCDs and aspirin for DVT prophylaxis. Her hemoglobin, hematocrit and vital signs were monitored during her hospital stay and remained stable. There were no complications. She did not require any blood transfusions. By postoperative day 2, she was tolerating a general diet, pain was controlled with oral pain medicine. She was participating in physical therapy and had no signs or symptoms of deep vein thrombosis. On postop day 2, she was discharged home given printed discharge instructions including new prescriptions for extra strength Tylenol, aspirin 325 mg b.i.d. and oxycodone. Continue her home medications except her home dose of aspirin which was changed. Continue physical therapy, weightbearing as tolerated, SMITHA stockings. Followup 10-12 days or sooner if there are any problems or concerns.
== END 2017-01-12 10:55 | disposition home or self-care (01) | DRG 470 ==
LOC: C.ACU 06:30 → C.3E 07:43 → ENRESERV 11:56
PROVIDERS: ADMIT Orthopaedic Surgery Sports Medicine; ATTEND Orthopaedic Surgery Sports Medicine
PROC: 0SRC0J9 Replacement of Right Knee Joint with Synthetic Substitute, Cemented, Open Approach (ICD-10-PCS; principal; 2017-01-10 08:55)
DX: M17.11 Unilateral primary osteoarthritis, right knee (principal); Z68.43 Body mass index [BMI] 50.0-59.9, adult; E78.00 Pure hypercholesterolemia, unspecified; J45.909 Unspecified asthma, uncomplicated; E66.01 Morbid (severe) obesity due to excess calories; M54.5 Low back pain; M54.2 Cervicalgia; I10 Essential (primary) hypertension; F32.9 Major depressive disorder, single episode, unspecified; K21.9 Gastro-esophageal reflux disease without esophagitis; E11.9 Type 2 diabetes mellitus without complications; D64.9 Anemia, unspecified; Z96.652 Presence of left artificial knee joint; Z79.899 Other long term (current) drug therapy; Z79.1 Long term (current) use of non-steroidal anti-inflammatories (NSAID); Z79.82 Long term (current) use of aspirin; Z79.891 Long term (current) use of opiate analgesic

== ENCOUNTER → 2017-05-15 | Outpatient (CLI) | payer OTHER ==
[~2017-05-15] MED LIST changes: +ACET-24 PO; -ACETAMINOPHEN 500 MG TAB PO SCH; +ASPEC325 PO; -ASPI81TA28 PO; -BUPIVACAINE LIPOSOME 266 MG, BUPIVACAINE/EPINEPHRINE INJ 50 ML, SODIUM CHLORIDE 0.9% PF... INFIL SCH; -CEFAZOLIN 3000 MG/65 ML D5W IV SCH; -CHECK SCOPOLAMINE PATCH PLACEMENT SCH; -FAMOTIDINE 20 MG TAB PO SCH; -GABAPENTIN 300 MG CAP PO SCH; -LACTATED RINGER'S 1000ML 1,000 ML IV SCH; -LACTATED RINGER'S 1000ML 500 ML IV ONE; -LACTATED RINGER'S 1000ML IV SCH; -LACTATED RINGER'S 500 ML IV SCH; -METOCLOPRAMIDE HCL 10 MG TAB PO SCH; +RXC5 PO; -SCOPOLAMINE 1.5 MG TDSY TD SCH; -TRANEXAMIC ACID INJ 1,000 MG in SODIUM CHLORIDE 0.9% 100ML 100 ML IV SCH
[2017-05-15 19:07] LABS: THYROID STIMULATING HORMONE 2.16 uIu/ml (0.300-4.500)
== END | disposition home or self-care (01) ==
LOC: C.LABSPEC 18:06
PROVIDERS: ATTEND Family Medicine
DX: R63.5 Abnormal weight gain (principal)